=== PATIENT | female | born 1955 | race Caucasian/White ===

== ENCOUNTER 2024-12-30 18:44 | Emergency (ER) | payer MEDICARE, SELFPAY ==
[2024-12-30 19:03] VITALS: BP 147/86; PULSE 72; RESP 16; TEMP 36.1; O2SAT 97; BMI 30.5
--- NOTE | 2024-12-30 19:07 | ED_ITS ---
HPI - General Adult General Chief complaint: Animal Bite Stated complaint: mult dog bites,scratches Time Seen by Provider: 12/30/24 21:55 Source: patient Mode of arrival: ambulatory Limitations: no limitations History of Present Illness ED Provider: Jenna Hunter PA-C HPI narrative: This is a 69 year old female with a history of breast cancer, thyroid cancer, and recent brain tumor diagnosis that presents for evaluation of multiple dog bites. She was walking her dog around 17:30 today when the neighbors dog attacked her dog. She picked her dog up to try to get it to safety. She got her dog to the emergency vet when she realized she had been bit multiple times as well. She reports that she does not know the vaccination status of the neighbor's dog. She has bites on her left and right arms and she reports that she has swelling and pain on her left lower leg and she was not sure if she was bit there as well. She is not sure if her tetanus shot is up to date. Related Data Previous Rx's ?Medication ?Instructions ?Recorded amoxicillin 875 mg-potassium 1 tab PO BID 5 days #10 t abs 12/30/24 clavulanate 125 mg tablet Allergies Allergy/AdvReac Type Severity Reaction Status Date / Time Iodinated Contrast Media (IV Allergy Hives Verified 12/30/24 19:08 Contrast Dye) Review of Systems 2 Constitutional: Constitutional: Reports as per HPI Eyes: Eyes: Reports as per HPI ENT: Reports as per HPI Cardiovascular: Cardiovascular: Reports as per HPI Respiratory: Respiratory: Reports as per HPI Gastrointestinal: Gastrointestinal: Reports as per HPI Genitourinary: Genitourinary: Reports as per HPI Musculoskeletal: Musculoskeletal: Reports as per HPI Integumentary/Breasts: Skin/Breast: Reports as per HPI Neurologic: Reports as per HPI Psychiatric: Psychiatric: Reports as per HPI Endocrine: Endocrine: Reports as per HPI Hematologic/Lymphatic: Hematologic/Lymphatic: Reports as per HPI Allergic/Immunologic: Allergic/Immunologic: Reports as per HPI PMF Past Medical History Attestation statement: The following information was validated with the patient. Source: old records reviewed and nursing notes reviewed Medical History Rabies exposure Social History Social History Advance Directives: No Advance Directives Information Provided: Yes Physical Exam ED Vital Signs: Vital Signs - 24 hr 12/30/24 19:03 12/30/24 23:35 Temperature 96.9 F 98.9 F Pulse Rate 72 92 Respiratory Rate 16 18 Blood Pressure 147/86 H 142/80 H Pulse Oximetry 97 97 Oxygen Delivery Method Room Air Room Air BMI result Body Mass Index 30.5 Const General: cooperative, no acute distress, alert and awake Nutritional Appearance: well nourished Orientation/consciousness: patient oriented x3 HENMT Head: Yes normal to inspection and Yes atraumatic Ears: hearing grossly normal bilaterally General nose exam: Normal external nose present, no nasal discharge noted and no epistaxis Face and sinus: Yes normal facial exam, No abrasion and No laceration Mouth: no drooling and no muffled voice Eyes General: appearance normal, both eyes and all related structures Periorbital: periorbital findings normal Eyelids: Yes eyelids normal Conjunctivae: conjunctivae normal Pupils: Equal, round and reactive pupils present EOM: EOMs intact bilaterally Neck Neck: Yes normal visual inspection and Yes full ROM Resp Effort & Inspection: normal respiratory effort and able to speak in complete sentences Skin General skin exam: other (Dog bites on left and right arm as well as left lower extremity. ) Trauma: puncture Neuro General: patient oriented x3 and moves all extremities Cranial nerves: Yes Equal, round and reactive pupils present Cognition (Neuro): normal cognition Extrem Other: General: Yes full ROM and Yes capillary refill normal Psych Appearance: grossly normal Mental Status: mental status grossly normal Affect: normal affect Attitude: cooperative Thought process: Normal thought process present Thought content: Normal thought content present Insight: Good insight present (Psych) Course Course Course Narrative: RME: 69 yold female presents to the ED for multiple dog bites to upper and lower extremities. patient states she was attacked by her neighbor's dog. She states never thought also intact her dog. 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 Medications Administered Discontinued Medications Generic Name Dose Route Start Last Admin Trade Name Freq PRN Reason Stop Dose Admin Diphtheria/Tetanus/Acell Pertussis 0.5 ml 12/30/24 19:09 12/30/24 21:45 Diphth,Pertus(Acell),Tet Adult 0.5 Ml Syringe IM 12/30/24 19:10 0.5 ml .ONCE ONE Administration Rabies Immune Globulin 1,370 unit 12/30/24 22:13 12/30/24 22:33 Rabies Immune Globulin/Pf 1,500 Unit/5 Ml Vial 20 unit/kg (1370 unit) 12/30/24 22:14 1,370 unit IM Administration ONCE ONE Rabies Vaccine 1 ml 12/30/24 22:13 12/30/24 22:32 Rabies Vaccine (Pcec)/Pf 1 Ml Vial IM 12/30/24 22:14 1 ml .ONCE ONE Administration Medical Decision Making Medical Decision Making MDM Narrative: Patient is a 69 year old assigned female at with a history of breast cancer, thyroid cancer, and recent diagnosis of brain tumor presenting to the emergency department today with several dog bites. Patient's physical exam was as noted in the physical exam portion of this note. None of the patient's bite wounds were gaping or requiring manual closure / approximation. I explained my physical exam findings to the patient. I answered all questions asked by the patient. All of patient's bite wounds were irrigated with a sterile water + iodine mixture, without incident. All of patient's dog bites were dressed with a non- stick dressing and web roll type gauze, without incident. Patient's PMS was intact prior to and after wound irrigation and dressing. Patient was brought up to date on tetanus and rabies. I stressed the importance of the patient taking her medication as directed (either prescribed or as the over the counter packaging recommends). I stressed the importance of the patient following up with her primary care provider. I stressed the importance of the patient returning to the emergency department immediately if her symptoms were to worsen or if she were to develop any dizziness, shortness of breath, difficulty breathing, chest pain, blurry vision, loss of vision, nausea, vomiting, abdominal pain, fever, chills, back pain, or any other complaints. Patient verbalized agreement and understanding with this treatment plan and discharge. Differential Diagnosis Differential Diagnoses: The differential diagnosis associated with the presentation includes Rabies exposure Dog bite Animal bite Admission/Observation Consideration of admission/observation: Escalation of care including admission/observation considered Patient would have been admitted to the hospital had her clinical presentation warranted hospital admission. Prescription Management I considered prescription management with: Antibiotic (Patient prescribed a prophylactic antibiotic given the mechanism of injury. ) Discharge Plan Discharge Clinical Impression: Rabies exposure Dog bite Qualifiers: Encounter type: initial encounter Qualified Code(s): W54.0XXA - Bitten by dog, initial encounter Patient Disposition: Home, Self-Care Instructions: Animal Bite (ED), Rabies (ED) Additional Instructions: You should get a call from the Infusion Center to schedule an appointment to receive the remainder of your required Rabies Vaccines. You will need a total of 3 more injections. If for some reason you do not receive a call from the infusion center - please call them at [phone]. Follow up with your primary care provider after completion of the vaccine to have a titer drawn to ensure the vaccines effectiveness. Remove your bandages before your shower on 12/31/2024. Do NOT soak the affected areas. When you get home tonight - remove ALL jewelry from your upper and lower extremities. They may get stuck / be unable to remove if you have any swelling. Take your antibiotic as prescribed. IF you are prescribed home medications and/or you are taking over the counter medications at home - it is very important you continue to do so as prescribed / directed unless told otherwise. Follow up with your primary care provider. Return to the emergency department immediately if your symptoms worsen or if you develop any numbness, tingling, dizziness, shortness of breath, difficulty breathing, chest pain, blurry vision, loss of vision, nausea, vomiting, abdominal pain, fever, chills, back pain, or any other complaints. Please see the information below about our Patient Portal. If you are not yet enrolled in the [facility] Patient Portal, you will receive an enrollment email invitation following your visit to any [facility] setting. You may also self-enroll in the Patient Portal by visiting our website: [email or web address] The following information is required to access the Patient Portal: - Your [facility] Medical Record Number - Your personal home email address (must match what is in your electronic medical record, Registration staff can assist with this) - Name - Date of Capabilities of the Patient Portal: - Message some providers - View upcoming appointments - Access your health summary, medical history, and visit history - View current conditions and allergies - View procedure and lab results - View your medications, including guidelines, side effects, and precautions - Complete pre-appointment questionnaires requested by your provider - Ready summary reports of your office visits and procedures To access the Patient Portal Mobile [employer], follow these directions: - Search [employer] in the [employer] Store or [email or web address] Store - Download the [employer] - Search for [facility] - Enter your login/password Prescriptions: New amoxicillin-pot clavulanate 875-125 mg tablet 1 tab PO BID 5 Days Qty: 10 0RF Interventions: ED Discharge Assessment Last Done: 12/30/24 23:35 Discharge Date/Time: 12/30/24 23:35 Print Language: Romansh
[2024-12-30] MEDS: Diphth,Pertus(ACell),Tet Adult 0.5 ML SYRINGE IM (21:45)
--- OUTSIDE RECORDS SUMMARY | 2024-12-30 22:01 | XMS_ITS | Clinical Summary ---
Author Organization [facility] Address [address] [address] Phone Care Team Providers Care Medical Reception Specialist Name Role Phone Radha Mcclain MD Primary Care Provider Allergies Active Allergy Reactions Criticality Noted Date Comments Diphenhydramine Hcl 12/21/2022 Other reaction(s): wires me Gadolinium-Containing Contrast Media Hives 12/21/2022 Oxycodone-Acetaminophen Nausea and/or Vomiting 12/21/2022 Medications escitalopram oxalate (LEXAPRO) 5 MG tablet Take 1 tablet by mouth every morning. 10/13/2022 Active losartan (COZAAR) 25 MG tablet Take 1 tablet by mouth every morning. 11/03/2022 Active omeprazole (PRILOSEC) 20 MG capsule Take 1 capsule by mouth every morning. 12/09/2022 Active tolterodine (DETROL LA) 2 MG 24 hr capsule Take 1 capsule by mouth every morning. 11/08/2022 Active traZODone (DESYREL) 50 MG tablet TAKE THREE TABLETS BY MOUTH AT BEDTIME 12/19/2022 Active vitamin E acetate (VITAMIN E ORAL) Take by mouth. Active ascorbic acid (VITAMIN C ORAL) Take by mouth. Active b complex vitamins capsule Take 1 capsule by mouth daily. Active calcium carb, citrate/vit D3 (CALCIUM CARB AND CITRATE-VITD3 ORAL) Take by mouth. Active Active Problems Problem Noted Date Diagnosed Date Vitamin D deficiency, unspecified 01/07/2023 Assessment & Plan (01/07/2023 11:02 PM EDT): Remains on calcium plus D supplement,? Dose. Last vitamin D level was normal at 42.2 in 05/2022. Continue current supplement. Monitor. History of hyperparathyroidism 01/07/2023 Overview (01/07/2023): Status post bilateral lower parathyroidectomy on 08/25/2014. Surgical indication was osteoporosis of the spine and osteopenia of the hip. Right lower 59 mg, hypercellular. Left 23 mg, hypercellular. PTH 91-15 after both lower parathyroids removed Assessment & Plan (01/07/2023 11:04 PM EDT): Status post bilateral lower parathyroidectomy on 08/25/2014. Surgical indication was osteoporosis of the spine and osteopenia of the hip. Serum calcium level has been normal. Monitor Thyroid nodule 01/07/2023 Assessment & Plan (01/07/2023 11:01 PM EDT): Patient is status post right lobectomy for a right nodule which had AUS. Surgical path 1.5 mm fully excised papillary thyroid cancer. Patient is BRAF V600 mutation positive. Last ultrasound on 03/30/2022 at [facility] compared to ultrasound on 01/07/2021. The left lobe is diffusely heterogeneous, normal vascularity, left mid solid 1.4 x 1.1 x 1.2 cm TR 3 nodule slightly larger from 1.2 x 0.8 x 0.7 cm. Another left mid solid 1.6 x 0.8 x 1.0 cm mixed cystic and solid TR 3 nodule likely present on prior exam but appears more complete spicules on current study. Left inferior 1.7 x 1.2 x 1.6 cm, solid, TR 3 larger from 1.2 x 1.2 x 1.3 cm. Clinically and biochemically euthyroid not on thyroid hormone replacement. Last TSH 0.56 in 05/2022. Plan to repeat ultrasound in 4. History of thyroid cancer 01/07/2023 Overview (01/07/2023): status post right lobectomy for a right nodule which had AUS. Surgical path 1.5 mm fully excised papillary thyroid cancer. Patient is BRAF V600 mutation positive. Assessment & Plan (01/07/2023 10:59 PM EDT): See above Age-related osteoporosis josé myers current pathological fracture 01/07/2023 Assessment & Plan (01/07/2023 10:55 PM EDT): History of multiple fractures, last was a shoulder fracture in 12/2019. Had a fall in 07/2022 but fortunately did not fracture. Was treated with alendronate for 5 years between 10/2005 and 10/2010. Had parathyroidectomy in 08/2014. Gradual improvement in her lumbar T score to osteopenia range by 07/2017. After her shoulder fracture in 2019 and significantly worse send lumbar and hip bone mineral density we restarted the alendronate in 01/2020 what she takes regularly. Last DEXA on 09/19/2022 reported the lumbar spine back to osteopenia range and the hip remains in the osteopenia range. We decided to stop the alendronate for now. Continue to monitor bone turnover markers and recheck DEXA in 1 to 2 years. Discussed the importance of adequate calcium, vitamin D intake and regular weightbearing exercises and fall prevention. Social History Tobacco Use Types Packs/Day Years Used Date Smoking Tobacco: Former Cigarettes 0.5 25 1 988 - 2012 Smokeless Tobacco: Never Alcohol Use Standard Drinks/Week Comments Yes 7 (1 standard drink = 0.6 oz pur e alcohol) Education Answer Date Recorded Are you interested in more education? Not on chana e 08/29/2022 Are you concerned about learning? Not on file 08/29/2022 No 08/29/2022 No 08/29/2022 Digital Access Answer Date Recorded No 08/29/2022 No 08/29/2022 Reliable internet access at home? Not on file 08/29/2022 Device with a working camera? Not on file Comments Unknown Sex and Gender Information Value Date Recorded Sex Assigned at Not on file Legal Sex Female 7:35 PM EST Gender Identity Not on file Sexual Orientation Not on file Last Filed Vital Signs Vital Sign Reading Time Taken Comments Blood Pressure 124/70 12/21/2022 9:05 AM EDT Pulse 69 12/21/2022 9:05 AM EDT Temperature - - Respiratory Rate - - Oxygen Saturation 96% 12/21/2022 9:05 AM EDT Inhaled Oxygen Concentration - - Weight 69.9 kg (154 lb 3.2 oz) 12/21/2022 9:05 A M EDT Height 153.7 cm (5' 0.5 ) 12/21/2022 9:05 AM EDT Body Mass Index 29.62 12/21/2022 9:05 AM EDT Plan of Treatment Health Maintenance Due Date Last Done Comments Adult Td,Tdap Booster 1954 LIPID PANEL 1954 DEPRESSION SCREENING 1966 SMOKING Hx and SMOKELESS TOBACCO SCREENING 12/30/1967 HEPATITIS C SCREENING 1972 COLOGUARD 12/30/1999 COLONOSCOPY 12/30/1999 COLORECTAL CANCER SCREENING 12/30/1999 FIT TEST 12/30/1999 FOBT 12/30/1999 SIGMOIDOSCOPY 12/30/1999 VIRTUAL COLONOSCOPY 12/30/1999 PNEUMOCOCCAL VACCINES (50+ years) (2 of 2 - PPSV23) 10/27/2021 10/27/2020 POTASSIUM LEVEL 12/22/2023 12/21/2022 CREATININE LEVEL 01/08/2024 01/07/2023, 12/21/2022 INFLUENZA VACCINE (#1) 2024 , 12/18/2020, 01/02/2020 COVID-19 VACCINE ( season) 2024 02/11/2022, 09/11/2021, 01/22/2021, Additional history exists RSV VACCINE (1 - 1-dose 75+ series) 2029 ZOSTER VACCINES Completed 10/18/2021, 07/26, 11/26/2015 OSTEOPOROSIS SCREENING INITIAL (ONE-TIME) Completed 10/12/2022 HEPATITIS A VACCINES Aged Out No long er eligible based on patient's age to complete this topic HIB VACCINES Aged Out No longer eligi ble based on patient's age to complete this topic MENINGOCOCCAL VACCINES (ACWY) Aged Out No longer eligible based on patient's age to complete this topic MENINGOCOCCAL VACCINES (B) Aged Out N o longer eligible based on patient's age to complete this topic Medical Devices Not on file Procedures Procedure Name Priority Date/Time Associated Diagnosis Comments COMPREHENSIVE METABOLIC PANEL Routine 12/21/2022 10:02 AM EDT Age-related osteoporosis without current pathological fracture HM DEXA SCAN Routine 10/12/2022 from Last 3 Months or Most Recently Relevant to Health Maintenance Results * (ABNORMAL) Comprehensive metabolic panel (12/21/2022 10:02 AM EDT) SODIUM 140 133 - 146 mmol/L [facility] POTASSIUM 4.8 3.3 - 5.1 mmol/L [facility] CHLORIDE 103 96 - 108 mmol/L [facility] CO2 28 21 - 35 mmol/L [facility] BUN 17 6 - 19 mg/dL [facility] CREATININE 0.60 0.5 - 1.5 mg/dL [facility] GLUCOSE 106(H) 70 - 99 mg/dL [facility] ALBUMIN 4.4 3.9 - 4.8 g/dL [facility] TOTAL PROTEIN 7.2 6.5 - 8.0 g/dL [facility] CALCIUM 9.3 8.4 - 10.3 mg/dL [facility] ALKALINE PHOSPHATASE 68 39 - 117 U/L [facility] TOTAL BILIRUBIN 0.4 0.0 - 1.2 mg/dL [facility] AST 20 0 - 37 U/L [facility] ALT 16 0 - 40 U/L [facility] GLOBULIN 2.8 1 - 4.8 g/dL [facility] EGFR 98 >59 mL/min/1.7 3m2 [facility] Comment:Estimated glomerular filtration rate calculated using the CKD-EPI refit equation. ANION GAP 14 10 - 20 mmol/L [facility] Blood 12/21/2022 10:0 2 AM EDT 12/21/2022 10:05 AM EDT us Hilda Gabriel MD LAB BLOOD ORDERABLES Final Res ult [address] [address] * DEXA SCAN (10/12/2022) us Historical Provider HEALTH MAINTENANCE Final Result from Last 3 Months or Most Recently Relevant to Health Maintenance Insurance O O O O O O Care Teams Medical Reception Specialist Relationship Specialty Start Date End Date Radha Mcclain MD [facility] [place] [address] PCP - General Internal Medicine 08/29/22 Additional Source Comments The information contained in this document represents components of the legal health record. It is not the complete legal health record.[facility]
[2024-12-30] MEDS: Rabies Vaccine (PCEC)/PF 1 ML VIAL IM (22:32)
[2024-12-30 23:35] VITALS: BP 142/80; PULSE 92; RESP 18; TEMP 37.2; O2SAT 97
== END 2024-12-30 23:35 | disposition home or self-care (01) ==
PROVIDERS: Emergency Provider Emergency Medicine
DX: S41.151A Open bite of right upper arm, initial encounter (principal); S41.152A Open bite of left upper arm, initial encounter; M79.602 Pain in left arm; M79.601 Pain in right arm; W54.0XXA Bitten by dog, initial encounter; Y93.9 Activity, unspecified; Y92.9 Unspecified place or not applicable; Y99.8 Other external cause status; Z23 Encounter for immunization; Z29.14 Encounter for prophylactic rabies immune globulin; Z20.3 Contact with and (suspected) exposure to rabies
CPT/HCPCS: 90375; 90471; 90472; 90675; 90715; 96372; 99282; 99284